=== PATIENT | female | born 1985 | race African-American/Black ===

== ENCOUNTER 2021-06-28 10:20 | Emergency (ER) | payer BC, SELFPAY ==
[2021-06-28 10:32] VITALS: BP 157/102; PULSE 90; RESP 16; TEMP 35.9; O2SAT 100
--- NOTE | 2021-06-28 10:45 | ED.SKABFB ---
HPI - Skin/Abscess/Foreign Bdy General Chief complaint: Skin/Abscess/Foreign Body Stated complaint: pos nipple infection Source: patient and RN notes reviewed Limitations: no limitations History of Present Illness HPI narrative: The patient, mostly healthy on minimal medications, presents with right breast discomfort. Patient states that she had a breast piercing over a year ago, which has been removed for months. Last month she was given Keflex for pain and redness, and ~7 days ago she completed a week's therapy. She complains continued redness and spontaneous discharge from the 3 o'clock position of the areola, mild and worse with palpation. No fever, abscess/induration, proximal streaking but the surrounding area is inflamed. Vital signs stable without fever and blood pressure in the 150s [that she has had before] Related Data Allergies Allergy/AdvReac Type Severity Reaction Status Date / Time No Known Allergies Allergy Verified 06/28/21 10:30 Review of Systems Review of Systems: General/Constitutional: No weight loss,fever Eyes: N0: Redness,discharge Ears/Nose/Throat: No: Epistaxis,ear discharge Respiratory: Denies: Hemoptysis Gastrointestinal: No Vomiting, Bleeding-rectal Skin: No Lumps, REPORTS eruption Neurologic: No Focal Weakness,Sz Hematologic: Denies: Petechiae/Purpura Psychiatric: No: Suicida ideationl All Other Systems: Reviewed and Negative PMFSH Comments At time of signature, agree with nursing past medical, surgical, social and family history. There is no relevant family history pertinent to the presenting complaint Exam Narrative: General Appearance: Well nourished/overweight, Normocephalic,Conjunctiva clear Ear: External ear normal Nose: Normal nose, Nare clear Mouth/Throat: Normal appearing, Supple, Skin: Warm, Dry; palm-sized area of redness centered on the medial areola, with scant discharge Chest: Airway patent, No respiratory distress, breast without abscess/induration/fluctuance Musculoskeletal: Moves all extremities, Non tender Neurological: A&O x3,normal affect Course Vital Signs Vital signs: Vital Signs Temperature 96.6 F L 06/28/21 10:32 Pulse Rate 90 06/28/21 10:32 Respiratory Rate 16 06/28/21 10:32 Blood Pressure 157/102 H 06/28/21 10:32 Pulse Oximetry 100 06/28/21 10:32 Temperature 96.6 F L 06/28/21 10:32 Pulse Rate 90 06/28/21 10:32 Respiratory Rate 16 06/28/21 10:32 Blood Pressure 157/102 H 06/28/21 10:32 Pulse Oximetry 100 06/28/21 10:32 Discharge Plan Discharge Clinical Impression: Cellulitis Qualifiers: Site of cellulitis: other site Qualified Code(s): L03.818 - Cellulitis of other sites Patient Disposition: Home, Self-Care Condition: Stable Instructions: Antibiotic Form, Cellulitis (ED) Additional Instructions: See PREPARER SAMPLES AND REPAIRS if not improved, return to hospital if worsens Take clindamycin with antacid, food and or probiotic; stop if diarrhea occurs Prescriptions: New clindamycin HCl 300 mg capsule 300 mg PO TID 30 Days Qty: 21 RF: 0 fluconazole 150 mg tablet 150 mg PO WEEKLY Qty: 2 RF: 1 Follow-up/Referrals: UNKNOWN,DOCTOR [Primary Care Provider] -
== END 2021-06-28 10:53 | disposition home or self-care (01) ==
PROVIDERS: Emergency Provider Emergency Medicine
DX: N61.0 Mastitis without abscess (principal)
CPT/HCPCS: 87070; 87075; 87205; 99213; G0463